=== PATIENT | female | born 1990 | race Caucasian/White ===

== ENCOUNTER → 2021-02-10 | Day surgery (SDC) | payer OTHER ==
[~2021-02-10] MED LIST: IBUPROFEN800 M1 PO; NAPROSYN375 MG PO; NORCO 5-325 TA1 EACH PO; PROVERA10 MG PO
[2021-02-10 09:00] LABS: HCG (URINE) SCREEN NEGATIVE (NEGATIVE)
== END | disposition home or self-care (01) ==
LOC: FAS 08:30
PROVIDERS: Obstetrics & Gynecology
DX: D25.0 Submucous leiomyoma of uterus (principal); D50.0 Iron deficiency anemia secondary to blood loss (chronic); N83.202 Unspecified ovarian cyst, left side; N83.201 Unspecified ovarian cyst, right side; N94.6 Dysmenorrhea, unspecified; M19.90 Unspecified osteoarthritis, unspecified site; F32.9 Major depressive disorder, single episode, unspecified; F17.210 Nicotine dependence, cigarettes, uncomplicated; G43.909 Migraine, unspecified, not intractable, without status migrainosus; Z88.1 Allergy status to other antibiotic agents; Z20.822 Contact with and (suspected) exposure to COVID-19; Z91.018 Allergy to other foods
CPT/HCPCS: 84703; C1782; J1170; J1885; J2250; J2405; J3010; J7120

== ENCOUNTER 2021-12-03 13:41 | Emergency (ER) | payer OTHER ==
[2021-12-03 14:26] LABS: BILIRUBIN 1+ mg/dL (NEGATIVE); BLOOD NEGATIVE Ery/uL (NEGATIVE); COLOR YELLOW (YELLOW); GLUCOSE (U) NORMAL (NORMAL); LEUKOCYTES NEGATIVE Leu/uL (NEGATIVE); NITRITE NEGATIVE (NEGATIVE); PROTEIN TRACE (LOW) mg/dL (NEGATIVE); SPECIFIC GRAVITY >=1.030 (1.001-1.030); UROBILINOGEN 0.2 mg/dL (0.2-1.0); pH 5.5 (5.0-9.0)
[2021-12-03 14:28] LABS: CLARITY CLOUDY (CLEAR)
[2021-12-03 14:35] LABS: BACTERIA TRACE; MUCOUS MODERATE
[2021-12-03 14:36] LABS: AMORPHOUS URATES CRYSTALS LARGE
[2021-12-03 14:48] LABS: CREATININE 0.83 mg/dL (0.51-0.95); POTASSIUM 3.6 mmol/L (3.5-5.1)
[2021-12-03 14:51] LABS: BASOPHIL 0.5 % (0-2); EOSINOPHIL 0 % (0-5); HGB 12.1 g/dl (12.5-16.0); LYMPHOCYTE 17.3 % (15-48); MCH 25.7 pg (25.0-31.0); MCHC 31.8 g/dL (32.0-36.0); MCV 80.9 fL (78.0-100.0); MPV 11.1 fL (6.0-9.5); NEUTROPHIL 60.7 % (41-80); NRBC 0; PLT 229 K/uL (150-400); RDW 17.2 % (11.5-14.0); WBC 4.2 K/uL (4.0-10.5)
[2021-12-03 14:52] LABS: MONOCYTE 21.3 % (0-12)
[2021-12-03 14:58] LABS: INFLUENZA A NAA NEGATIVE (NEGATIVE)
[2021-12-03 15:00] LABS: CORONAVIRUS 2019 SARS-COV-2 POSITIVE (NEGATIVE)
== END 2021-12-03 16:46 | disposition home or self-care (01) ==
LOC: FER 13:41
PROVIDERS: Nurse Practitioner Family
DX: U07.1 COVID-19 (principal); G43.909 Migraine, unspecified, not intractable, without status migrainosus; Z88.0 Allergy status to penicillin; Z91.048 Other nonmedicinal substance allergy status
CPT/HCPCS: 36415; 80048; 81001; 85025; J1100; J1885; J7030; U0002

== ENCOUNTER 2022-02-27 12:59 | Emergency (ER) | payer OTHER ==
[2022-02-27 13:48] LABS: BASOPHIL 0.7 % (0-2); EOSINOPHIL 0 % (0-5); HCT 41.5 % (37.0-47.0); HGB 13.1 g/dl (12.5-16.0); LYMPHOCYTE 7.6 % (15-48); MCH 26.3 pg (25.0-31.0); MCHC 31.6 g/dL (32.0-36.0); MCV 83.3 fL (78.0-100.0); MONOCYTE 7.1 % (0-12); MPV 10.9 fL (6.0-9.5); NEUTROPHIL 84.4 % (41-80); NRBC 0; PLT 198 K/uL (150-400); RBC 4.98 M/uL (4.20-5.40); RDW 16.1 % (11.5-14.0); WBC 4.2 K/uL (4.0-10.5)
[2022-02-27 14:01] LABS: BILIRUBIN 1+ mg/dL (NEGATIVE); BLOOD NEGATIVE Ery/uL (NEGATIVE); CLARITY CLEAR (CLEAR); COLOR YELLOW (YELLOW); GLUCOSE (U) NORMAL (NORMAL); LEUKOCYTES TRACE Leu/uL (NEGATIVE); NITRITE NEGATIVE (NEGATIVE); PROTEIN 1+ mg/dL (NEGATIVE); SPECIFIC GRAVITY 1.025 (1.001-1.030); UROBILINOGEN 0.2 mg/dL (0.2-1.0)
[2022-02-27 14:14] LABS: CORONAVIRUS 2019 SARS-COV-2 NEGATIVE (NEGATIVE); INFLUENZA A NAA NEGATIVE (NEGATIVE)
[2022-02-27 14:21] LABS: BACTERIA 1+
[2022-02-27 14:22] LABS: MUCOUS MODERATE
[2022-02-27 14:26] LABS: BUN/CREAT RATIO (CALC) 8.3 RATIO; CREATININE 0.96 mg/dL (0.51-0.95); POTASSIUM 3.8 mmol/L (3.5-5.1)
== END 2022-02-27 15:16 | disposition home or self-care (01) ==
LOC: FER 12:59
PROVIDERS: Nurse Practitioner Family
DX: B34.9 Viral infection, unspecified (principal); Z20.822 Contact with and (suspected) exposure to COVID-19; Z28.310 Unvaccinated for COVID-19; Z88.0 Allergy status to penicillin; Z88.8 Allergy status to other drugs, medicaments and biological substances; Z91.030 Bee allergy status; Z91.018 Allergy to other foods
CPT/HCPCS: 36415; 71045; 80048; 81001; 85025; 87088; 87880; U0002